=== PATIENT | female | born 1950 | race Caucasian/White ===

== ENCOUNTER 2022-05-27 15:03 | Emergency (ER) | payer OTHER ==
[2022-05-27 15:50] VITALS: BP 137/75; PULSE 74; RESP 20; TEMP 97.8; BMI 25.0
[2022-05-27] MEDS ORDERED: TETRACAINE 0.5% OPHTH SOLN 2 ML BOTTLE ONE (16:01)
[2022-05-27] MEDS ORDERED: FLUORESCEIN NA 1 EA STRIP ONE (16:01)
[2022-05-27 16:18] LABS: HEMATOCRIT 37.4 % (32.4-45.2); HEMOGLOBIN 12.4 G/dL (10.7-15.3); MCH 27.1 pg (25.7-33.7); MEAN CELL VOLUME 82.1 fl (80-96); MEAN PLT VOLUME 9.7 fl (7.5-11.1); PLATELET COUNT 212.7 10^3/uL (134-434); RBC 4.55 10^6/uL (3.60-5.2); RDW 14.5 % (11.6-15.6); WHITE BLOOD COUNT 7.1 10^3/uL (4.0-10.8)
[2022-05-27 16:38] LABS: ALBUMIN 4.2 g/dl (3.4-5.0); BILIRUBIN,TOTAL 0.9 mg/dl (0.2-1); CALCIUM 9.1 mg/dl (8.5-10); CREATININE 0.7 mg/dl (0.55-1.3); PLATELET ESTIMATE ADEQUATE; TOT PROT 6.9 g/dl (6.4-8.2)
== END 2022-05-27 17:45 | disposition home or self-care (01) ==
LOC: FER 15:03
DX: H53.9 Unspecified visual disturbance (principal)
CPT/HCPCS: 36415; 80053; 85027; 93005; 99284-25